=== PATIENT | female | born 1965 ===

== ENCOUNTER → 2017-04-23 | Day surgery (SDC) | payer OTHER ==
[~2017-04-23] MED LIST: ALLEGRA ALLERG180 MG PO; MOBIC7.5 M1 PO; TRAMADOL HCL50 MG PO; WELLBUTRIN XL300 MG PO; ZEGERID 20 MG1 EAC1 PO
== END | disposition home or self-care (01) ==
LOC: ADM 04-16 08:30 → CIR.AMB 07:46
DX: M77.11 Lateral epicondylitis, right elbow (principal)